=== PATIENT | female | born 1970 | race Caucasian/White ===

== ENCOUNTER 2018-08-31 08:50 | Day surgery (SDC) | payer BC ==
[~2018-08-31] VITALS: Ht 167.6 cm; Wt 140.9 kg
--- NOTE | ~2018-08-31 | OP ---
PATIENT NAME: CARLITOS BARAHONA MEDICAL RECORD: [id number] :70 LOCATION:[facility] ADMISSION DATE: SURGEON: ASHLEY GONCALVES DO DATE OF OPERATION: 08/31/2018 PROCEDURE: Colonoscopy with polypectomy. INDICATIONS FOR PROCEDURE: Change in bowel habits and nausea as well as gas and bloating. SCOPE: Olympus video pediatric colonoscope. MEDICATIONS: Propofol 500 mg IV per anesthesia. WITHDRAWAL TIME: 7 minutes. ESTIMATED BLOOD LOSS: Minimal. COMPLICATIONS: None. FINDINGS: Informed consent was given. The patient was made comfortable with the above medication. After reaching an adequate level of sedation by slow IV push, the patient was placed on her left side. A digital rectal examination was performed and was normal. The endoscope was then advanced under direct visualization through the rectum to the cecum and terminal ileum. The endoscope was slowly withdrawn and mucosa was carefully examined. The prep quality was good. There were 3 polyps visualized in the ascending colon. They were all benign appearing and sessile and ranged in size from 2-4 mm in diameter. They were all removed using hot forceps. In the sigmoid colon, there was a benign appearing semi-pedunculated polyp, which measured approximately 5 mm in diameter. It was removed using a hot snare. Retroflexion was performed in the rectum with a normal appearing rectal wall. There were no diverticula visualized on today's examination. The endoscope was withdrawn from the patient. The patient tolerated the procedure well and there were no complications. IMPRESSION: 1. Four polyps as described above, removed using a combination of a hot snare and hot forceps. 2. Otherwise, normal colonoscopy. PLAN AND RECOMMENDATIONS: 1. Discharge home when recovery parameters are met. 2. Follow up biopsy specimen results. 3. High fiber diet. 4. Continue current medications. 5. Proceed with EGD as planned. 6. Consider a right upper quadrant ultrasound prior to EGD 7. If ultrasound is not adequate to evaluate the gallbladder, consider a CT of the abdomen and pelvis with contrast. 8. Pending findings on EGD, may consider gastric emptying scan based on symptoms. TRANSINT:[id number] Voice Confirmation ID: [id number] DOCUMENT ID: [id number] OPERATIVE REPORT [id number] CARLITOS BARAHONA ASHLEY GONCALVES DO CC: [id number] DICTATION DATE: 08/31/18 1115 [employer] SALES CLERK: 08/31/18 1208 [facility] [address] [id number]
[2018-08-31] MEDS ORDERED: PROMETRIUM200 MG PO (09:33)
[2018-08-31] MEDS ORDERED: ARMOUR THYROID30 MG PO (09:33)
[2018-08-31] MEDS ORDERED: HYDROXYCHLOROQUINE PO (09:36)
[2018-08-31] MEDS ORDERED: MINIVELLE1 EAC1 TRANSDERM (09:36)
[2018-08-31 09:43] VITALS: BP 147/69; Ht 167.6 cm; Wt 140.9 kg
[2018-08-31 09:57] LABS: HEMATOCRIT 42.5 % (36.0-48.0); HEMOGLOBIN 14.1 g/dL (12-16); MCHC 33.2 g/dL (31.0-37.0); MCV 87.4 fL (80.0-100.0); MEAN PLATELET VOLUME 11.3 fL (7.4-10.4); RBC 4.86 10x6/uL (4.00-5.40); RDW 13.5 % (11.5-14.5); WBC 8.1 10x3/uL (4.8-10.8)
== END 2018-08-31 12:15 | disposition home or self-care (01) ==
LOC: D.OPS
PROVIDERS: Anesthesiology; ATTEND Internal Medicine Gastroenterology
DX: D12.2 Benign neoplasm of ascending colon (principal); D12.5 Benign neoplasm of sigmoid colon; Z01.812 Encounter for preprocedural laboratory examination

== ENCOUNTER 2018-10-05 09:49 | Day surgery (SDC) | payer BC ==
[~2018-10-05] VITALS: Ht 167.6 cm; Wt 140.9 kg
[~2018-10-05 09:49] MED LIST: ARMOUR THYROID30 MG PO; HYDROXYCHLOROQUINE PO; MINIVELLE1 EAC1 TRANSDERM; PROMETRIUM200 MG PO
[2018-10-05 10:42] LABS: HEMATOCRIT 42.4 % (36.0-48.0); HEMOGLOBIN 14.2 g/dL (12-16); MCH 28.8 pg (26.0-34.0); MCHC 33.5 g/dL (31.0-37.0); MEAN PLATELET VOLUME 11.5 fL (7.4-10.4); RBC 4.93 10x6/uL (4.00-5.40); RDW 13.4 % (11.5-14.5); WBC 6.9 10x3/uL (4.8-10.8)
[2018-10-05 11:00] VITALS: BP 133/69; Ht 167.6 cm; Wt 140.9 kg
--- NOTE | 2018-10-05 16:44 | OP ---
PATIENT NAME: CARLITOS BARAHONA MEDICAL RECORD: [id number] :70 LOCATION:[facility] ADMISSION DATE: SURGEON: ASHLEY GONCALVES DO DATE OF OPERATION: 10/05/2018 PROCEDURE: EGD with biopsies. INDICATIONS FOR PROCEDURE: Gas and bloating, nausea, epigastric pain. SCOPE: Olympus video gastroscope. MEDICATIONS: Propofol 150 mg IV per anesthesia. ESTIMATED BLOOD LOSS: Minimal. COMPLICATIONS: None. FINDINGS: Informed consent was given. The patient was made comfortable with the above medication. After reaching an adequate level of sedation by slow IV push, the patient was placed on her left side. The endoscope was advanced under direct visualization through the mouth to the second portion of the duodenum. The entire esophagus appeared normal. At the GE junction, there were minor changes consistent with LA class A reflux-induced esophagitis. The endoscope was advanced down the GE junction into the stomach and retroflexed to view the cardia and fundus, which appeared normal. The entire body of the stomach, antrum, and prepyloric regions appeared normal without ulcers, erosions, or significant erythema. Multiple cold forceps biopsies were taken randomly to submit for histopathology and to rule out the presence of H. pylori. The endoscope was advanced beyond the pylorus into the duodenum, which appeared normal down to the second portion. The endoscope was then withdrawn from the patient. The patient tolerated the procedure well and there were no complications. IMPRESSIONS: 1. LA class A reflux-induced esophagitis. 2. Prior intervention in the stomach, which would be consistent with the previous lap band which has been removed. PLAN AND RECOMMENDATIONS: 1. Discharge home when recovery parameters are met. 2. Follow up biopsy specimen results. 3. Continue current diet. 4. Continue current medications. 5. We will discuss findings with the patient and determine if further workup is indicated. If she wishes to pursue any further workup, a right upper quadrant ultrasound and gastric emptying scan are the first tests that I would consider based on her symptoms and history. TRANSINT:[id number] Voice Confirmation ID: [id number] DOCUMENT ID: [id number] OPERATIVE REPORT [id number] CARLITOS BARAHONA ASHLEY GONCALVES DO at 1641 CC: [id number] DICTATION DATE: 10/05/18 7336 HOG RINGER: 10/05/18 1401 [facility] 10/05/18 [facility] [address] [facility] [place] [address]
== END 2018-10-05 13:05 | disposition home or self-care (01) ==
LOC: D.OPS 09:49
PROVIDERS: Anesthesiology; ATTEND Internal Medicine Gastroenterology
DX: K21.0 Gastro-esophageal reflux disease with esophagitis (principal); Z01.812 Encounter for preprocedural laboratory examination